=== PATIENT | female | born 2000 | race American Indian/Alaskan Native ===

== ENCOUNTER 2021-12-20 01:54 | Observation (INO) ==
[2021-12-20 03:07] LABS: Albumin Globulin Ratio 1.2 (0.9-2); Albumin Level 4.3 gm/dl (3.4-5.0); BUN Creatinine Ratio 15.7 (10-20); Bilirubin,Total 0.3 mg/dl (0.2-1.0); Calcium 9.4 mg/dl (8.5-10.1); Creatinine Clr Calc Pharmacy 119.3 ml/min; Est GFR (African American) 141.5 ml/min; Est GFR (Non-African American) 122.1 ml/min; Globulin 3.7 gm/dl (2.5-4.0); Potassium 4.3 mmol/L (3.5-5.1)
--- NOTE | 2021-12-20 03:11 | Emergency Department Note ---
History of Present Illness General Chief complaint: Unresponsive Time Seen by Provider: 12/20/21 02:55 History of Present Illness 21-year-old female presents via EMS and was seen immediately upon arrival to the emergency department in room 81. Reportedly the patient was walking down the street with friends and boyfriend and had been in a conversation and potential argument with her boyfriend when she began to feel faint and collapsed. Reportedly EMS states that there was no trauma she was flickering her eyes and they thought there is a possibility that there was a seizure due to her unresponsiveness. Patient was given 2 mg of IV Ativan prior to hospital arrival. There is no further history available to me at the time from the patient due to her unresponsiveness. But there is no reported alcohol or drugs or trauma involved. Home Medications Medication Instructions Recorded Confirmed Type No Known Home Medications 01/14/21 01/14/21 History Allergies Allergy/AdvReac Type Severity Reaction Status Date / Time No Known Allergies Allergy Unverified 01/14/21 19:37 Past Med/Surg History Medical History No pertinent past medical history Surgical History No pertinent past surgical history Social History Smoking Status: Unknown if ever smoked Hx Alcohol Use: No Hx Substance Use: No Preferred Language: Spanish current occupational status: student current occupation: [employer] student Feels Safe at Home: Yes Immunizations: Past medical history is not fully reviewed initially due to unresponsiveness Review of Systems Unobtainable due to reduced consciousness Physical Exam Vital Signs Vital Signs - 24 hr 12/20/21 02:00 12/20/21 02:47 12/20/21 01:59 Temperature 36.8 C Temperature Source Rectal Pulse Rate 99 H Pulse Rate [Finger] Pulse Rhythm [Finger] Pulse Strength [Finger] Respiratory Rate 21 Respiratory Effort / Characteristics Non-Labored Spontaneous Respiratory Depth Normal Respiratory Pattern Regular Blood Pressure 107/78 Blood Pressure [Right Arm] Blood Pressure Mean 87 Blood Pressure Mean [Right Arm] Pulse Oximetry 100 100 99 Oxygen Delivery Method Room Air Room Air Room Air Oxygen Flow Rate 0 Sepsis Recent Fever Within 48 Hours No Sepsis New/Unexplained Change in Mental Status N/A Sepsis Action Taken by Nursing No Action Required 12/20/21 02:55 12/20/21 02:15 12/20/21 02:27 Temperature Temperature Source Pulse Rate Pulse Rate [Finger] 103 H 98 H 84 Pulse Rhythm [Finger] Regular Pulse Strength [Finger] Normal Respiratory Rate 12 19 16 Respiratory Effort / Characteristics Non-Labored Spontaneous Respiratory Depth Normal Respiratory Pattern Regular Blood Pressure Blood Pressure [Right Arm] 121/77 116/82 109/87 Blood Pressure Mean Blood Pressure Mean [Right Arm] 91 93 94 Pulse Oximetry 100 99 100 Oxygen Delivery Method Room Air Room Air Room Air Oxygen Flow Rate Sepsis Recent Fever Within 48 Hours Sepsis New/Unexplained Change in Mental Status Sepsis Action Taken by Nursing 12/20/21 02:30 12/20/21 03:00 12/20/21 03:45 Temperature Temperature Source Pulse Rate Pulse Rate [Finger] 91 H 93 H 93 H Pulse Rhythm [Finger] Pulse Strength [Finger] Respiratory Rate 19 16 19 Respiratory Effort / Characteristics Non-Labored Spontaneous Respiratory Depth Normal Respiratory Pattern Regular Blood Pressure Blood Pressure [Right Arm] 120/80 121/79 110/69 Blood Pressure Mean Blood Pressure Mean [Right Arm] 93 93 82 Pulse Oximetry 98 99 96 Oxygen Delivery Method Room Air Room Air Room Air Oxygen Flow Rate Sepsis Recent Fever Within 48 Hours Sepsis New/Unexplained Change in Mental Status Sepsis Action Taken by Nursing 12/20/21 04:00 Temperature Temperature Source Pulse Rate Pulse Rate [Finger] 97 H Pulse Rhythm [Finger] Regular Pulse Strength [Finger] Normal Respiratory Rate 17 Respiratory Effort / Characteristics Non-Labored Spontaneous Respiratory Depth Normal Respiratory Pattern Regular Blood Pressure Blood Pressure [Right Arm] 120/72 Blood Pressure Mean Blood Pressure Mean [Right Arm] 88 Pulse Oximetry 100 Oxygen Delivery Method Room Air Oxygen Flow Rate Sepsis Recent Fever Within 48 Hours Sepsis New/Unexplained Change in Mental Status Sepsis Action Taken by Nursing GENERAL: Patient is awake; not interactive blinking her eyes there is no obvious tonic-clonic seizure activity however EYES: The conjunctivae are clear. The pupils are round and reactive. EARS, NOSE, MOUTH AND THROAT: The nose is without any evidence of any deformity. Mucous membranes are moist. Tongue is midline. NECK: The neck is nontender and supple. RESPIRATORY: Normal respiratory effort is noted there is no evidence of wheezing rhonchi or rales CARDIOVASCULAR: Regular rate and rhythm noted there no murmurs rubs or gallops normal S1 normal S2. GASTROINTESTINAL: The abdomen is soft. PELVIS: The Pelvis is stable. BACK: No midline deformities MUSCULOSKELETAL/EXTREMITIES: There is no evidence of gross deformity full range of motion is noted in the hips and shoulders. SKIN: There is no obvious evidence of any rash. There are no petechiae, pallor or cyanosis noted. NEUROLOGIC: Patient is awake but does not follow commands is blinking her eyes but occasionally appears to shake her head in a affirmative and to some questioning. Course Reevaluation(s) Reevaluation #1: On reexamination with friends at bedside speaking belkofski Hungarian language to the patient the patient seems to be improving and has become more responsive. I discussed the evaluation with the patient and try to encourage her to improve CAT scan is normal her blood work is normal I have also spoken to friends at her bedside Time: 03:28 Reevaluation #2: Patient on repeat examination is still slow to respond but with verbal stimuli the patient turns her head and tries to answer questions Time: 04:02 Medical Decision Making Medical Records Attestation: I reviewed the patient's medical records. Home Medications Current Medication List: was personally reviewed by me Laboratory Data Attestation: I reviewed the patient's lab results. Result diagrams: 12/20/21 02:08 12/20/21 02:08 Lab Results 12/20/21 12/20/21 12/20/21 Range/Units 02:08 02:08 02:08 WBC (4.8-10.8) K/ul RBC (3.93-5.22) M/uL Hgb (12.0-16.0) g/dl Hct (34.1-44.9) % MCV (80.0-100.0) fL MCH (25.0-34.0) pg MCHC (32.0-36.0) g/dL RDW Std Deviation (36.4-46.3) fL RDW Coeff of Shani (11.5-14.5) % Plt Count (130-400) K/uL MPV (9.4-12.3) fL Sodium 137 (136-145) mmol/L Potassium 4.3 (3.5-5.1) mmol/L Chloride 106 (98-107) mmol/L Carbon Dioxide 24 (21-32) mmol/L Anion Gap 7 (3-11) BUN 11 (6-23) mg/dl Creatinine 0.70 (0.6-1.2) mg/dl Est Cr Clr Drug Dosing 119.3 ml/min Est GFR ( Amer) 141.5 ml/min Est GFR (Non-Af Amer) 122.1 ml/min BUN/Creatinine Ratio 15.7 (10-20) Glucose 110 H (70-99(Fasting)) mg/dl Calcium 9.4 (8.5-10.1) mg/dl Total Bilirubin 0.3 (0.2-1.0) mg/dl AST 17 (13-39) U/L ALT 11 (7-52) U/L Alkaline Phosphatase 52 (34-104) U/L Total Protein 8.0 (6.0-8.3) gm/dl Albumin 4.3 (3.4-5.0) gm/dl Globulin 3.7 (2.5-4.0) gm/dl Albumin/Globulin Ratio 1.2 (0.9-2) Urine Opiates Screen Neg (Neg) Ur Methadone, Qual Neg (Neg) Urine Barbiturates Neg (Neg) Ur Phencyclidine (PCP) Neg (Neg) U Amphetamin/Meth Scrn Neg (Neg) MDMA (Ecstasy) Screen Neg (Neg) U Benzodiazepines Scrn Neg (Neg) Ur Cocaine Metabolite Neg (Neg) U Marijuana (THC) Screen Neg (Neg) Ethyl Alcohol mg/dL < 10.0 (<10.0) mg/dl SARS-CoV-2, RNA, NAAT (NEGATIVE) 12/20/21 12/20/21 Range/Units 02:08 04:03 WBC 11.32 H (4.8-10.8) K/ul RBC 4.38 (3.93-5.22) M/uL Hgb 12.7 (12.0-16.0) g/dl Hct 37.7 (34.1-44.9) % MCV 86.1 (80.0-100.0) fL MCH 29.0 (25.0-34.0) pg MCHC 33.7 (32.0-36.0) g/dL RDW Std Deviation 41.1 (36.4-46.3) fL RDW Coeff of Shani 13.2 (11.5-14.5) % Plt Count 252 (130-400) K/uL MPV 11.3 (9.4-12.3) fL Sodium (136-145) mmol/L Potassium (3.5-5.1) mmol/L Chloride (98-107) mmol/L Carbon Dioxide (21-32) mmol/L Anion Gap (3-11) BUN (6-23) mg/dl Creatinine (0.6-1.2) mg/dl Est Cr Clr Drug Dosing ml/min Est GFR ( Amer) ml/min Est GFR (Non-Af Amer) ml/min BUN/Creatinine Ratio (10-20) Glucose (70-99(Fasting)) mg/dl Calcium (8.5-10.1) mg/dl Total Bilirubin (0.2-1.0) mg/dl AST (13-39) U/L ALT (7-52) U/L Alkaline Phosphatase (34-104) U/L Total Protein (6.0-8.3) gm/dl Albumin (3.4-5.0) gm/dl Globulin (2.5-4.0) gm/dl Albumin/Globulin Ratio (0.9-2) Urine Opiates Screen (Neg) Ur Methadone, Qual (Neg) Urine Barbiturates (Neg) Ur Phencyclidine (PCP) (Neg) U Amphetamin/Meth Scrn (Neg) MDMA (Ecstasy) Screen (Neg) U Benzodiazepines Scrn (Neg) Ur Cocaine Metabolite (Neg) U Marijuana (THC) Screen (Neg) Ethyl Alcohol mg/dL (<10.0) mg/dl SARS-CoV-2, RNA, NAAT NEGATIVE (NEGATIVE) Imaging Data Radiologist's Impression: CT per radiology is no acute abnormality of the head ECG Data Attestation: I personally reviewed and interpreted this ECG as follows: Additional Comments: EKG interpreted by me is normal sinus rhythm possible right intraventricular conduction delay no obvious ST segment elevation or depression normal axis; rate of 90 MDM Narrative Medical decision making differential diagnosis includes near syncope, syncope, vasovagal syncope, cardiac dysrhythmia, seizure, psychogenic seizure,conversion disorder, metabolic derangement, dehydration, alcohol intoxication. Plan is to check labs, EKG, CT, observe Patient continued to have a change in mental status her CAT scan is negative her drug screen is negative her alcohol is negative her lab work is normal. She was slow to respond, I do not suspect the patient have status epilepticus, I suspect that this could be a psychogenic vasovagal syncope versus a conversion disorder. The case was discussed with the [facility] hospitalist for admission. Impression & Plan Acute alteration in mental status Discharge Plan Visit Data Chief Complaint: Unresponsive ED Provider: Jared Khanna Discharge Problem: Acute alteration in mental status Patient Disposition: Being Evaluated by Hospitalist Forms Stand Alone Forms: My [facility] Prescriptions Prescriptions: No Action No Known Home Medications Referrals Referrals: [facility] [Primary Care Provider] -
[2021-12-20 03:16] LABS: Hematocrit (blood only) 37.7 % (34.1-44.9); Hemoglobin 12.7 g/dl (12.0-16.0); Mean Corpuscular Hgb Conc 33.7 g/dL (32.0-36.0); Mean Corpuscular Volume 86.1 fL (80.0-100.0); Mean Platelet Volume 11.3 fL (9.4-12.3); Platelet Count 252 K/uL (130-400); RDW Coefficient of Variation 13.2 % (11.5-14.5); RDW Standard Deviation 41.1 fL (36.4-46.3); Red Blood Count 4.38 M/uL (3.93-5.22); White Blood Count 11.32 K/ul (4.8-10.8)
[2021-12-20 03:26] LABS: Amphetamines+Metham, Urine Neg (Neg); Barbiturates, Urine Neg (Neg); Benzodiazepine, Urine Neg (Neg); Cocaine, Urine Neg (Neg); MDMA (Ecstacy), Urine Neg (Neg); Methadone, Urine Neg (Neg); Opiate, Urine Neg (Neg); Phencyclidine, Urine Neg (Neg)
--- NOTE | 2021-12-20 04:19 | History & Physical Report ---
Date of Service December 20, 2021 Assessment & Plan (1) Acute alteration in mental status: Plan: 21 y/o female w/ no PMHx who presents EMS following an episode where she collapsed and became unresponsive. - per presentation (appears aware of being talked to, but keeps eyes closed and isn't responding verbally), most likely etiologies are atypical migraine vs psychogenic/conversion disorder - lower suspicion for seizure or cva - will monitor on telemetry to r/o arrhythmia - head CT normal. defer MRI for now. reassess mentation during day - ordered 1 dose of toradol and Reglan to treat as possible migraine as patient complained of headache prior to the episode - after resolution of symptoms, consider evaluation of any underlying stressors and/or anxiety (2) Incomplete RBBB: Plan: - ecg per my interpretation: sinus 90. + artifact / poor quality. incomplete RBBB. T wave inversions in V1-V3. - repeat ecg at 9AM - check trop - will defer echo for now Plan NPO scds full code med tele History of Present Illness Chief Complaint: sudden collapse and unresponsiveness Primary Care Provider: [facility] 21 y/o female w/ no PMHx who presents EMS following an episode where she collapsed and became unresponsive. Patient was reportedly walking on street with housemates when she had headache started to feel faint. Denies trauma. There was some flickering noted in patient's eyes on the way down. No tonic-clonic type activity. History was obtained from 2 housemates at bedside. They do not know patient's past medical hx in detail, but as far as they are aware, no significant medical problems. They have lived with her for the past 1.5 years and this has not happened previously. They do note that patient does get stressed at times from university and is more reserved during times of stress. She occasionally has headaches with stress. Per housemates, no known substance use. Housemates are not of her taking any prescription medications. Patient was given 2mg IV Ativan en-route to hospital w/o effect (per her housemates). The housemates believe that patient is awake, aware, and responding somewhat to external stimuli. ED course: CT head w/o acute findings per statrad. VSS. HR 90s. wbc 11.32. CMP wnl. UDS neg. Housemate: [phone]. Santiago. Allergies Allergy/AdvReac Type Severity Reaction Status Date / Time No Known Allergies Allergy Unverified 01/14/21 19:37 Home Medications Medication Instructions Recorded Confirmed Type No Known Home Medications 01/14/21 01/14/21 History Past Med/Surg History Medical History (Updated 12/20/21 @ 05:37 by Shar Irby MD) No pertinent past medical history Surgical History No pertinent past surgical history Social History Smoking Status: Never smoker Hx Alcohol Use: No Hx Substance Use: No Preferred Language: Guyanese Motor Vehicle License Clerk Required: No Beliefs That Will Affect Care: None Current Living Situation: Boarding Home current occupational status: student current occupation: [employer] student Other Information That Helps Us Care for You: No Feels Safe at Home: Yes Safety Concerns: Feels Safe At This Time Assistive Devices: None Review of Systems Review of Systems: Unobtainable due to cognitive status Physical Exam Physical Exam: General: Not responding to verbal stimuli or sternal rub. Eyes partially open at times; appears aware of surroundings, but otherwise has eyes closed and not verbally responding. HEENT: Atraumatic, normocephalic. PERRL. Pulm: CTAB anteriorly. -wheezes, -rales, -rhonchi. No respiratory distress. Cardiac: RRR, -mrg. No LE edema. Integ: Warm, dry, intact. Neuro: Could not fully assess. 2+ patellar reflexes bilat. Results & Data Results & Data ([facility]) Vital Signs (Past 12 Hours) Vital Signs Temp Pulse Pulse Resp BP BP Pulse Ox 12/20/21 04:00 97 H 17 120/72 100 12/20/21 03:45 93 H 19 110/69 96 12/20/21 03:00 93 H 16 121/79 99 12/20/21 02:30 91 H 19 120/80 98 12/20/21 02:27 84 16 109/87 100 12/20/21 02:15 98 H 19 116/82 99 12/20/21 02:55 103 H 12 121/77 100 12/20/21 01:59 36.8 C 99 H 21 107/78 99 12/20/21 02:47 100 12/20/21 02:00 100 O2 Del Method O2 Flow Rate 12/20/21 04:00 Room Air 12/20/21 03:45 Room Air 12/20/21 03:00 Room Air 12/20/21 02:30 Room Air 12/20/21 02:27 Room Air 12/20/21 02:15 Room Air 12/20/21 02:55 Room Air 12/20/21 01:59 Room Air 12/20/21 02:47 Room Air 0 12/20/21 02:00 Room Air Laboratory Results Cardiac Enzymes 12/20/21 Range/Units 02:08 AST 17 (13-39) U/L CBC 12/20/21 Range/Units 02:08 WBC 11.32 H (4.8-10.8) K/ul RBC 4.38 (3.93-5.22) M/uL Hgb 12.7 (12.0-16.0) g/dl Hct 37.7 (34.1-44.9) % Plt Count 252 (130-400) K/uL Comprehensive Metabolic Panel 12/20/21 Range/Units 02:08 Sodium 137 (136-145) mmol/L Potassium 4.3 (3.5-5.1) mmol/L Chloride 106 (98-107) mmol/L Carbon Dioxide 24 (21-32) mmol/L BUN 11 (6-23) mg/dl Creatinine 0.70 (0.6-1.2) mg/dl Glucose 110 H (70-99(Fasting)) mg/dl Calcium 9.4 (8.5-10.1) mg/dl AST 17 (13-39) U/L ALT 11 (7-52) U/L Alkaline Phosphatase 52 (34-104) U/L Total Protein 8.0 (6.0-8.3) gm/dl Albumin 4.3 (3.4-5.0) gm/dl Intake and Output 12/19/21 12/19/21 12/20/21 14:59 22:59 06:59 Other: Weight 72.5 kg Weight Measurement Method Built in [facility] Patient Weight 12/20/21 06:59 Weight 72.[address] had statrad No acute abnormality. No acute intracranial hemorrhage or abnormal extra-axial fluid collection.No acute stroke. Ventricles and sulci normal in size for age. No midline shift. No paranasal sinus air-fluid level. No fracture. Radiologist: perfecto Nava MD. Study ready at 02:27 and initial results transmitted at 02:30 Code Status & VTE Plan Code Status full VTE Prophylaxis Plan VTE Prophylaxis will be ordered: Yes Supervising Physician Co-Signing Physician Notes Attending addendum: I have physically seen this patient, have supervised the medical residents activities, and agree with the H&P unless as otherwise noted. Assessment and Plan: Mental status change/unresponsive episode- Differential including but not limited to atypical migraine, psychogenic, conversion disorder, seizure, TIA/CVA, others Admit to monitored bed CT head normal MRI brain in a.m. Consult psychiatry Incomplete right bundle branch block- Follow on telemetry Repeat cardiac enzymes Will consider echocardiogram if symptoms indicate Remaining orders and notations as noted Resident Activity Tracking Resident Involvement: Resident Care Provided Care Provided: Adult Hospital Medicine
[2021-12-20] MEDS ORDERED: KETOROLAC 30 MG/ML VIAL IV ONE (05:09)
[2021-12-20] MEDS ORDERED: METOCLOPRAMIDE HCL INJ 5 MG/ML 2 ML VIAL IV STA (05:17)
[2021-12-20 06:44] LABS: Magnesium 2.1 mg/dl (1.7-2.4)
[2021-12-20 06:49] LABS: Troponin I High Sensitivity 8.8 pg/ml (0-14)
--- NOTE | 2021-12-20 07:34 | CT Scan Report ---
CT head/brain wo con CLINICAL HISTORY: UNRESPONSIVE Technique: Contiguous axial CT images of the head were acquired from the base of the skull to the carli sherly without intravenous contrast administration. Images were viewed in brain, subdural and [facility]. Automated dose lowering techniques and/or adjustment according to patient size were utilized for this exam. Comparison: None available at the time of this dictation. Findings: The ventricles, basal cisterns, and cerebral sulci are normal. There is no acute intracranial hemorrh age or evidence of acute territorial infarction. Neither mass effect, shift of the midline structures , nor abnormal extra-axial fluid collections are shown. Imaged portions of the paranasal sinuses and mastoid air cells are clear. The orbits appear normal. There are no acute fractures of the calvaria or scalp swelling. Impression: No acute intracranial hemorrhage, no evidence of acute territorial infarction or other acute intracra nial disease process. ACT 112: Negative or not required by law. Electronically signed by: Jimi Friend M.D. 12/20/2021 7:32 AM
[2021-12-20] MEDS ORDERED: SODIUM CHLORIDE 0.9% 1000ML 1,000 ML IV ONE (07:48)
[2021-12-20 09:17] LABS: iSTAT Creatinine 0.6 mg/dl (0.6-1.3); iSTAT Hemoglobin 12.9 g/dl (12.0-16.0); iSTAT Ionized Calcium 1.16 mmol/l (1.12-1.32); iSTAT Potassium 4.1 mmol/L (3.3-5.0)
--- NOTE | 2021-12-20 10:09 | Hospitalist Progress Note ---
Date of Service December 20, 2021 Assessment & Plan (1) Acute alteration in mental status: Plan: Attending: Dr. Hunt Impression: 21 y/o female w/ no PMHx who presents EMS following an episode where she collapsed and became unresponsive. On admission: - per presentation (appears aware of being talked to, but keeps eyes closed and isn't responding verbally), most likely etiologies are atypical migraine vs psychogenic/conversion disorder - lower suspicion for seizure or cva - will monitor on telemetry to r/o arrhythmia - head CT normal. defer MRI for now. reassess mentation during day - ordered 1 dose of toradol and Reglan to treat as possible migraine as patient complained of headache prior to the episode - after resolution of symptoms, consider evaluation of any underlying stressors and/or anxiety Throughout the day today, patient was alert and oriented x3. She had flat affect and no overt neurological deficiencies. MRI was completed and was negative for any acute findings. Unclear if this is psychogenic or early demyelinization disease. If patient fails to show significant provement by tomorrow, will consult neurology for their input. (2) Incomplete RBBB: Plan: - Sinus 90. + artifact / poor quality. incomplete RBBB. T wave inversions in V1- V3. - repeat ecg with no abnormalities. Suspect poor lead placement on initial EKG -Troponin within normal limits - No further work-up required Plan Advance diet scds full code med tele for now. Can change to medical status tomorrow if not discharged Admission and Anticipated Discharge Date Admission Date: December 20, 2021 Subjective Attending: Dr. Hunt This is a 21-year-old female that was admitted this morning 04:[address] scan of the head was negative. No histories of seizures or cardiac disease. Fasting glucose was 110 mg/Amrik. Electrolytes are balanced. Urinalysis with slightly elevated urine pH, 1+ esterase, greater than 30 epithelial cells, and 1+ bacteria. test is negative. Toxicology screen is negative. Lots of artifact on EKG. V1 does suggest right ventricular conduction delay. Will repeat EKG this morning. Patient seen at bedside in room 262 bed 2. She continues to have persistent weakness that she reports is being from her periphery to proximal. Initially she had difficulty raising her hands and arms but with encouragement was able to do that. She seems to be profoundly weak. She also feels as though she is "foggy" and thought. She denies any neurological disease or malady in the past. She is not on any medications. She has no past medical history that is significant. She reports that she is faithful as a [employer] and does not partake in alcohol or drugs, hookah, or any other substance. She has never had any history of syncope or presyncope. She denies any social activity that may have subjected her to exposure to toxins or unintended substances. She has a mild headache. No visual changes. No nuchal rigidity or other neck pain. Her only complaint is generalized weakness Patient's parents live in [place]. She specifically asked that they not be notified Review of Systems Review of Systems: A total of 10 systems was reviewed and is negative other than as listed in the HPI Physical Exam Physical Exam: GENERAL : No acute distress EYES: No icterus, gaze conjugate NOSE: No evidence of epistaxis MOUTH: No lesions or candidiasis NECK: Supple LUNGS: CTA B/L, no wheezes, rales or rhonchi HEART: Regular, rate controlled ABDOMEN: Soft, NT, ND, BS Present EXTREMITIES: No LE edema, pedal pulses intact NEURO: A&OX3. Profound weakness of the upper and lower extremities. Able to follow commands. Pupils equal round and reactive to light. Tongue is midline. Deep tendon reflexes are 2 out of 4 and equal to upper and lower extremities. No nuchal rigidity. No slurred speech. No aphasia. Results & Data Results & Data ([facility]) Vital Signs (Past 12 Hours) Vital Signs Temp Pulse Pulse Resp BP BP BP 12/20/21 07:49 91 H 12/20/21 07:23 36.4 C L 74 16 88/58 L 12/20/21 06:26 90 16 12/20/21 04:55 103 H 17 120/75 12/20/21 04:00 97 H 17 120/72 12/20/21 03:45 93 H 19 110/69 12/20/21 03:00 93 H 16 121/79 12/20/21 02:30 91 H 19 120/80 12/20/21 02:27 84 16 109/87 12/20/21 02:15 98 H 19 116/82 12/20/21 02:55 103 H 12 121/77 12/20/21 01:59 36.8 C 99 H 21 107/78 12/20/21 02:47 12/20/21 02:00 Pulse Ox O2 Del Method O2 Flow Rate 12/20/21 07:49 12/20/21 07:23 100 Room Air 12/20/21 06:26 97 Room Air 12/20/21 04:55 99 12/20/21 04:00 100 Room Air 12/20/21 03:45 96 Room Air 12/20/21 03:00 99 Room Air 12/20/21 02:30 98 Room Air 12/20/21 02:27 100 Room Air 12/20/21 02:15 99 Room Air 12/20/21 02:55 100 Room Air 12/20/21 01:59 99 Room Air 12/20/21 02:47 100 Room Air 0 12/20/21 02:00 100 Room Air Critical Care Results & Data Vital Signs (Past 12 Hours) Vital Signs Temp Pulse Pulse Resp BP BP Pulse Ox 12/20/21 19:19 37.0 C 72 18 109/72 100 12/20/21 15:27 37.1 C 81 16 96/63 L 98 12/20/21 15:20 84 12/20/21 12:01 37.0 C 101 H 16 109/76 100 12/20/21 10:23 36.7 C 88 16 112/72 99 12/20/21 10:23 36.7 C 88 16 112/72 99 O2 Del Method 12/20/21 19:19 Room Air 12/20/21 15:27 Room Air 12/20/21 15:20 12/20/21 12:01 Room Air 12/20/21 10:23 Room Air 12/20/21 10:23 Room Air Lab & Micro Results (Past 24 Hours) RBC 4.38 M/uL (3.93-5.22) 12/20/21 WBC 11.32 K/ul (4.8-10.8) H 12/20/21 Hgb 12.7 g/dl (12.0-16.0) 12/20/21 Hct 37.7 % (34.1-44.9) 12/20/21 MCV 86.1 fL (80.0-100.0) 12/20/21 MCH 29.0 pg (25.0-34.0) 12/20/21 MCHC 33.7 g/dL (32.0-36.0) 12/20/21 RDW Standard Deviation 41.1 fL (36.4-46.3) 12/20/21 RDW Coefficient of Variation 13.2 % (11.5-14.5) 12/20/21 Plt Count 252 K/uL (130-400) 12/20/21 MPV 11.3 fL (9.4-12.3) 12/20/21 Na 137 mmol/L (136-145) 12/20/21 K 4.3 mmol/L (3.5-5.1) 12/20/21 Cl 106 mmol/L (98-107) 12/20/21 CO2 24 mmol/L (21-32) 12/20/21 Anion Gap 7 (3-11) 12/20/21 BUN 11 mg/dl (6-23) 12/20/21 Creatinine 0.70 mg/dl (0.6-1.2) 12/20/21 Estimated GFR ( Amer) 141.5 ml/min 12/20/21 Estimated GFR (Non-Af Amer) 122.1 ml/min 12/20/21 BUN/Creatinine Ratio 15.7 (10-20) 12/20/21 Glu 110 mg/dl (70-99(Fasting)) H 12/20/21 Ca 9.4 mg/dl (8.5-10.1) 12/20/21 Total Bilirubin 0.3 mg/dl (0.2-1.0) 12/20/21 AST 17 U/L (13-39) 12/20/21 ALT 11 U/L (7-52) 12/20/21 Alkaline Phosphatase 52 U/L (34-104) 12/20/21 TP 8.0 gm/dl (6.0-8.3) 12/20/21 Albumin 4.3 gm/dl (3.4-5.0) 12/20/21 Globulin 3.7 gm/dl (2.5-4.0) 12/20/21 Albumin/Globulin Ratio 1.2 (0.9-2) 12/20/21 Mg 2.1 mg/dl (1.7-2.4) 12/20/21 02:08 Calcium Level 9.4 mg/dl (8.5-10.1) 12/20/21 02:08 Diagnostic Findings (Past 24 Hours) Head CT 12/20/21 02:20 CT head/brain wo con CLINICAL HISTORY: UNRESPONSIVE Technique: Contiguous axial CT images of the head were acquired from the base of the skull to the vertex without intravenous contrast administration. Images were viewed in brain, subdural and bone windows. Automated dose lowering techniques and/or adjustment according to patient size were utilized for this exam. Comparison: None available at the time of this dictation. Findings: The ventricles, basal cisterns, and cerebral sulci are normal. There is no acute intracranial hemorrhage or evidence of acute territorial infarction. Neither mass effect, shift of the midline structures, nor abnormal extra-axial fluid collections are shown. Imaged portions of the paranasal sinuses and mastoid air cells are clear. The orbits appear normal. There are no acute fractures of the calvaria or scalp swelling. Impression: No acute intracranial hemorrhage, no evidence of acute territorial infarction or other acute intracranial disease process. ACT 112: Negative or not required by law. Electronically signed by: Jimi Friend M.D. 12/20/2021 7:32 AM Brain MRI 12/20/21 13:30 MR brain wo/w con HISTORY: 21 years-old Female Systemic weakness acute weakness COMPARISON: Head CT of same day TECHNIQUE: Multiplanar multisequence MRI of the brain was obtained both with and without the use of 7 cc Gadavist FINDINGS: No restricted diffusion. Unremarkable midline structures with mild adenoid enlargement. No acute intracranial hemorrhage, midline shift, abnormal extra- axial collection, hydrocephalus or intracranial mass. Brain volume is within normal limits. Subcentimeter focus of increased T2/FLAIR signal noted within the subcortical right frontal lobe on image 8 series 6, likely of no clinical significance. No abnormal enhancement. Cerebral venous sinuses and major arterial flow voids appear patent. The skull, orbits and soft tissues are unremarkable. Mastoid air cells and paranasal sinuses are generally clear. IMPRESSION: 1. No acute intracranial abnormality. 2. No abnormal enhancement. ACT 112: Negative or not required by law. The above report was generated using voice recognition software. It may contain grammatical, syntax or spelling errors. Electronically signed by: Pedro Luis Macedo M.D. 12/20/2021 6:01 PM I & O Totals 24 Hours 12/19/21 12/20/21 12/21/21 06:59 06:59 06:59 Intake Total 1000 / 1000 Balance 1000 / 1000 Cumulative 12/20/21 01:51 thru 12/20/21 17:35 Intake Total 1000 Balance 1000 RT Ventilator Mngmt (Last Documented) Ventilator Ordered Settings Respiratory Rate 18 12/20/21 19:19 Ventilator - PT Measurements Respiratory Rate 18 PG Care Time/CCT Total # of Minutes Spent Total Time Spent with Patient: Total time spent is greater than 50% in coordination of care (as documented) at patient's floor/unit and/or counseling patient: 35 minutes Coding Level of Care Code None Diagnoses Acute alteration in mental status R41.82 Incomplete RBBB I45.10
[2021-12-20] MEDS ORDERED: GADOBUTROL 65ML VIAL IV ONE (17:34)
--- NOTE | 2021-12-20 18:03 | Magnetic Resonance Report ---
MR brain wo/w con HISTORY: 21 years-old Female Systemic weakness acute weakness COMPARISON: Head CT of same day TECHNIQUE: Multiplanar multisequence MRI of the brain was obtained both with and without the use of 7 cc Gadavist FINDINGS: No restricted diffusion. Unremarkable midline structures with mild adenoid enlargement. No acute intr acranial hemorrhage, midline shift, abnormal extra-axial collection, hydrocephalus or intracranial ma ss. Brain volume is within normal limits. Subcentimeter focus of increased T2/FLAIR signal noted with in the subcortical right frontal lobe on image 8 series 6, likely of no clinical significance. No abn ormal enhancement. Cerebral venous sinuses and major arterial flow voids appear patent. The skull, orbits and soft tissu es are unremarkable. Mastoid air cells and paranasal sinuses are generally clear. IMPRESSION: 1. No acute intracranial abnormality. 2. No abnormal enhancement. ACT 112: Negative or not required by law. The above report was generated using voice recognition software. It may contain grammatical, syntax o r spelling errors. Electronically signed by: Pedro Luis Macedo M.D. 12/20/2021 6:01 PM
--- NOTE | 2021-12-21 02:37 | Billing Data ---
Date of Service December 21, 2021 Coding Level of Care Code INT OBSERVATION CARE 70M LVL 3
--- NOTE | 2021-12-21 12:23 | Discharge Summary ---
Date of Service December 21, 2021 Admission HPI Per Admitting Provider 21 y/o female w/ no PMHx who presents EMS following an episode where she collapsed and became unresponsive. Patient was reportedly walking on street with housemates when she had headache started to feel faint. Denies trauma. There was some flickering noted in patient's eyes on the way down. No tonic-clonic type activity. History was obtained from 2 housemates at bedside. They do not know patient's past medical hx in detail, but as far as they are aware, no significant medical problems. They have lived with her for the past 1.5 years and this has not happened previously. 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 She occasionally has headaches with stress. Per housemates, no known substance use. Housemates are not of her taking any prescription medications. Patient was given 2mg IV Ativan en-route to hospital w/o effect (per her housemates). The housemates believe that patient is awake, aware, and responding somewhat to external stimuli. ED course: CT head w/o acute findings per statrad. VSS. HR 90s. wbc 11.32. CMP wnl. UDS neg. Housemate: [phone]. Santiago. Principal Diagnosis unresponsive episode - uncertain etiology Discharge Exam GENERAL: 21 yo Well-developed, well-nourished F. NAD. LUNGS: Clear to auscultation bilaterally. W/R/R. CARDIOVASCULAR: Regular rate and rhythm. No M/G/R. No JVD. ABDOMEN: Soft, non-tender and non-distended. BS normoactive x 4 quad. EXTREMITIES: No edema. Non-tender. Peripheral pulses +2/4. NEUROLOGIC: A&O x3. No focal neurological deficits. CN II-XII grossly intact. PSYCHIATRIC: Cooperative. Appropriate mood and affect. SKIN: Warm, dry, intact. No rashes or lesions. Discharge Data Allergies Allergy/AdvReac Type Severity Reaction Status Date / Time No Known Allergies Allergy Unverified 01/14/21 19:37 Consultations 12/20/21 04:47 ED Decision to Admit Stat Ordered Studies Brain MRI 12/20/21 13:30 MR brain wo/w con HISTORY: 21 years-old Female Systemic weakness acute weakness COMPARISON: Head CT of same day TECHNIQUE: Multiplanar multisequence MRI of the brain was obtained both with and without the use of 7 cc Gadavist FINDINGS: No restricted diffusion. Unremarkable midline structures with mild adenoid enlargement. No acute intracranial hemorrhage, midline shift, abnormal extra- axial collection, hydrocephalus or intracranial mass. Brain volume is within normal limits. Subcentimeter focus of increased T2/FLAIR signal noted within the subcortical right frontal lobe on image 8 series 6, likely of no clinical significance. No abnormal enhancement. Cerebral venous sinuses and major arterial flow voids appear patent. The skull, orbits and soft tissues are unremarkable. Mastoid air cells and paranasal sinuses are generally clear. IMPRESSION: 1. No acute intracranial abnormality. 2. No abnormal enhancement. ACT 112: Negative or not required by law. The above report was generated using voice recognition software. It may contain grammatical, syntax or spelling errors. Electronically signed by: Pedro Luis Macedo M.D. 12/20/2021 6:01 PM Hospital Course (1) Acute alteration in mental status: 21 y/o female w/ no PMHx who presents EMS following an episode where she collapsed and became unresponsive. - per presentation (appears aware of being talked to, but keeps eyes closed and isn't responding verbally), most likely etiologies are atypical migraine vs psychogenic/conversion disorder - lower suspicion for seizure or cva - monitored on telemetry, no arrhythmias noted, tox screen neg - head CT normal. defer MRI for now. reassess mentation during day - ordered 1 dose of toradol and Reglan to treat as possible migraine as patient complained of headache prior to the episode - MRI performed, no acute findings - discussed case with neurology, possibly represented seizure but no indication to start treatment at this time if it would be - More likely stress induced vasovagal syncope - related to poor PO intake and stress from school (2) Incomplete RBBB: - ecg per my interpretation: sinus 90. + artifact / poor quality. incomplete RBBB. T wave inversions in V1-V3. - repeat ecg at 9AM - hs trop 8.8 - asymptomatic Plan Patient is medically and hemodynamically stable for discharge at this time. Requires close f/u with [facility], appointment made. Excuse provided for class absences 12/20 and 12/21. Plan d/w Dr. Lema who has also seen and evaluated this patient prior to discharge and agrees with aforementioned. Total Time Total Time Spent Total Time Spent (In Minutes): <30 minutes Discharge Plan Discharge Items Patient Disposition: Home - Self-Care Reason For Visit: UNRESPONSIVENESS Discharge Diagnosis: unresponsive episode - uncertain cause Activity: Resume your previous activity Non-emergency contact: Primary Care Provider Call non-emergency contact if: you have any medication questions Follow-up/Referrals: [facility] [Primary Care Provider] - (Please make follow-up for next week. Call----[phone]) Diet: Regular Addtl Attending Provider Instructions: You were hospitalized due to an unresponsive episode. Fortunately, your studies appear to be normal thus far including an MRI of your brain and no abnormal cardiac rhythms detected on the monitor during your stay. It is very likely that your symptoms were related to decreased oral intake (not eating or drinking enough) causing you to be weak, in addition to the added piece of stress related to school, caused your body to respond by passing out. It is going to be very important to focus on good self care - eating and drinking enough. Also, finding ways to manage/cope with stress. Reading, meditating, etc. At this point, no further work up is felt to be warranted. It is strongly recommended that you follow up with [facility] next week. An appointment has been made on your behalf. Please keep this appointment. If you have any questions following your discharge, please feel free to contact the nonemergency number listed on your discharge paperwork. In the event of a medical emergency, call 911. Pending Studies at Discharge: No Stand-Alone Forms: My [facility], Work/School Release, Smoking Cessation Medications and DC Order Prescriptions: Continued No Known Home Medications Discharge Orders: Discharge Order (Routine); Ordered 12/21/21 Ordered By: Jaelyn Perez Admission Data Admit Date/Time: 12/20/21 05:17 Attending Provider: Skinny Lema Admit Provider: Shar Irby Primary Care Provider: [facility] Other Providers: Delroy Kate Other Interventions: Discharge Summary Assessment (RN) Last Done: 12/21/21 14:32 Supervising Physician Co-Signing Physician Notes I personally examined the patient and verified all chamberlain points of history and exam, discussed case, and agree with decision making with Maryam Perez PAC feels up to going home. thinsk stress and poor PO intake contributed vitals noted nad heent nc at mmm breathing unlabored no accessory muscles good effort skin no rashes no pallor or icterus sycnope - likely poor PO intake/stress --> orthostatic/vagal - safe for home, outpt f/u otherwise as above Coding Level of Care Code 19088 OBS Care - Discharge Diagnoses Acute alteration in mental status R41.82 Incomplete RBBB I45.10
--- NOTE | 2021-12-21 22:57 | Electrocardiogram Report ---
Test Reason : Blood Pressure : / mmHG Vent. Rate : 090 BPM Atrial Rate : 090 BPM P-R Int : 134 ms QRS Dur : 090 ms QT Int : 362 ms P-R-T Axes : 061 041 034 degrees QTc Int : 442 ms Poor data quality, interpretation may be adversely affected Normal sinus rhythm with sinus arrhythmia Possible Left atrial enlargement RSR' or QR pattern in V1 suggests right ventricular conduction delay T wave abnormality, consider anterior ischemia Abnormal ECG No previous ECGs available Confirmed by Bud Lizama ([id number]) on 12/21/2021 10:57:32 PM Referred By: REFERRED SELF Confirmed By:Bud Lizama
--- NOTE | 2021-12-22 05:55 | Electrocardiogram Report ---
Test Reason : Blood Pressure : / mmHG Vent. Rate : 097 BPM Atrial Rate : 097 BPM P-R Int : 142 ms QRS Dur : 082 ms QT Int : 352 ms P-R-T Axes : 060 067 036 degrees QTc Int : 447 ms Normal sinus rhythm with sinus arrhythmia Normal ECG When compared with ECG of 20-DEC-2021 02:02, RSR' pattern in V1 is no longer Present Confirmed by Bud Lizama ([id number]) on 12/22/2021 5:54:27 AM Referred By: REFERRED SELF Confirmed By:Bud Lizama
== END 2021-12-21 17:05 | disposition home or self-care (01) ==
LOC: 2W 01:54 → ED 01:54 → SUATTDRO 05:17 → 2W 06:27